=== PATIENT | male | born 1950 | race Caucasian/White ===

== ENCOUNTER → 2024-06-27 | Outpatient (CLI) | payer OTHER ==
--- NOTE | 2024-06-27 16:41 | HMCIMG ---
CT HEART SAVER PROMOTIONAL HISTORY: Cardiac calcification scoring. FINDINGS: The cardiac calcification scoring is 1448.7. LM = 140.5, LAD = 561.9, CX = 189.7, RCA = 548.7. Limited examination of the heart was performed. The study is done for additional or incidental findings. IMPRESSION: Ascending aortic aneurysmal dilation up to 4.5 cm in greatest caliber. Hepatic steatosis, including 2.0 cm simple left hepatic lobe cyst. No other additional findings.
== END | disposition home or self-care (01) ==
LOC: RAH 14:52
PROVIDERS: ATTEND Internal Medicine Cardiovascular Disease
DX: Z13.6 Encounter for screening for cardiovascular disorders (principal); I71.21 Aneurysm of the ascending aorta, without rupture; K76.0 Fatty (change of) liver, not elsewhere classified; K76.89 Other specified diseases of liver
CPT/HCPCS: 75571